=== PATIENT | female | born 1950 | race Caucasian/White ===

== ENCOUNTER 2020-12-10 17:53 | Emergency (ER) | payer OTHER ==
[~2020-12-10 17:53] MED LIST: BACLOFEN20 MG PO; CIPRO500 MG PO; DIAZEPAM 5MG TAB5 MG PO; DICLOFENAC SOD100 G1 PO; LIDOCAINE 5% P1 EACH TOP
[2020-12-10] MEDS ORDERED: CEPHALEXIN500 M1 PO (22:48)
[2020-12-10] MEDS ORDERED: K-DUR20 MEQ PO (22:48)
[2020-12-10] MEDS ORDERED: LASIX20 MG PO (22:48)
== END 2020-12-10 23:03 | disposition home or self-care (01) ==
LOC: FER 17:53
DX: L03.116 Cellulitis of left lower limb (principal); L03.115 Cellulitis of right lower limb; I87.2 Venous insufficiency (chronic) (peripheral); G35 Multiple sclerosis; R60.0 Localized edema
CPT/HCPCS: 36415; 83880; 99283

== ENCOUNTER 2021-12-27 13:56 | Day surgery (SDCO) | payer OTHER ==
[~2021-12-27] VITALS: Ht 167.6 cm; Wt 71.7 kg
[~2021-12-27 13:56] MED LIST changes: +CEPHALEXIN500 M1 PO; +K-DUR20 MEQ PO; +LASIX20 MG PO
[2021-12-27 15:40] LABS: BASOPHIL 0.6 % (0-2); EOSINOPHIL 3.3 % (0-7); HCT 35.7 % (37.0-47.0); HGB 11.8 g/dl (12.5-16.0); MCH 30.2 pg (25.0-31.0); MCHC 33.1 g/dL (32.0-36.0); MCV 91.3 fL (78.0-100.0); MONOCYTE 15.7 % (0-12); MPV 10.2 fL (6.0-9.5); NEUTROPHIL 52.2 % (41-80); NRBC 0; PLT 289 K/uL (150-400); RBC 3.91 M/uL (4.20-5.40); RDW 15.6 % (11.5-14.0); WBC 6.4 K/uL (4.0-10.5)
[2021-12-27 16:17] LABS: BUN/CREAT RATIO (CALC) 26.8 RATIO; CREATININE 0.56 mg/dL (0.51-0.95); POTASSIUM 3.6 mmol/L (3.5-5.1)
[2021-12-27 23:08] LABS: RETICULOCYTE COUNT 1.4 % (1.0-2.0)
[2021-12-28 06:32] LABS: HCT 32.8 % (37.0-47.0); HGB 10.8 g/dl (12.5-16.0); MCH 29.9 pg (25.0-31.0); MCHC 32.9 g/dL (32.0-36.0); MCV 90.9 fL (78.0-100.0); MPV 10.2 fL (6.0-9.5); RBC 3.61 M/uL (4.20-5.40); RDW 15.6 % (11.5-14.0); WBC 5.6 K/uL (4.0-10.5)
[2021-12-28 06:55] LABS: ALBUMIN 2.2 g/dL (3.4-5.0); BILIRUBIN - TOTAL 0.3 mg/dL (0.2-1.0); BUN/CREAT RATIO (CALC) 24.2 RATIO; CREATININE 0.62 mg/dL (0.51-0.95); POTASSIUM 3.7 mmol/L (3.5-5.1); TOTAL PROTEIN 5.2 g/dL (6.4-8.2)
[2021-12-30 05:50] LABS: BASOPHIL 0.5 % (0-2); HGB 10.7 g/dl (12.5-16.0); LYMPHOCYTE 38.4 % (15-48); MCH 29.6 pg (25.0-31.0); MCHC 32.4 g/dL (32.0-36.0); MCV 91.4 fL (78.0-100.0); MONOCYTE 16.3 % (0-12); MPV 10.3 fL (6.0-9.5); NEUTROPHIL 40.3 % (41-80); NRBC 0; PLT 208 K/uL (150-400); RBC 3.61 M/uL (4.20-5.40); RDW 15.5 % (11.5-14.0); WBC 4.3 K/uL (4.0-10.5)
[2021-12-30 06:11] LABS: BUN/CREAT RATIO (CALC) 14.9 RATIO; CREATININE 0.74 mg/dL (0.51-0.95); POTASSIUM 3.8 mmol/L (3.5-5.1)
[2022-01-01 07:19] LABS: BASOPHIL 0.6 % (0-2); EOSINOPHIL 4.5 % (0-7); HCT 36.3 % (37.0-47.0); HGB 11.5 g/dl (12.5-16.0); MCH 29.9 pg (25.0-31.0); MCHC 31.7 g/dL (32.0-36.0); MCV 94.5 fL (78.0-100.0); MPV 10.6 fL (6.0-9.5); NEUTROPHIL 42.7 % (41-80); NRBC 0; PLT 219 K/uL (150-400); RBC 3.84 M/uL (4.20-5.40); RDW 15.9 % (11.5-14.0); WBC 5.1 K/uL (4.0-10.5)
[2022-01-01 07:36] LABS: BUN/CREAT RATIO (CALC) 15.9 RATIO; CREATININE 0.69 mg/dL (0.51-0.95); POTASSIUM 4.1 mmol/L (3.5-5.1)
--- NOTE | 2022-01-01 11:09 | NUR ---
PT IS CURRENT WITH [facility]. ALEXIS [phone] FAX [phone]
[2022-01-02 06:40] LABS: BASOPHIL 0.8 % (0-2); EOSINOPHIL 6.1 % (0-7); HCT 35.2 % (37.0-47.0); HGB 11.1 g/dl (12.5-16.0); LYMPHOCYTE 33.7 % (15-48); MCH 29.5 pg (25.0-31.0); MCHC 31.5 g/dL (32.0-36.0); MCV 93.6 fL (78.0-100.0); MONOCYTE 16.2 % (0-12); MPV 10.4 fL (6.0-9.5); NRBC 0; PLT 234 K/uL (150-400); RBC 3.76 M/uL (4.20-5.40); RDW 15.8 % (11.5-14.0); WBC 5.1 K/uL (4.0-10.5)
[2022-01-02 06:58] LABS: BUN/CREAT RATIO (CALC) 18.2 RATIO; CREATININE 0.77 mg/dL (0.51-0.95)
[2022-01-03 07:10] LABS: HCT 33.9 % (37.0-47.0); HGB 10.9 g/dl (12.5-16.0); MCH 29.8 pg (25.0-31.0); MCHC 32.2 g/dL (32.0-36.0); MCV 92.6 fL (78.0-100.0); MPV 9.8 fL (6.0-9.5); RBC 3.66 M/uL (4.20-5.40); RDW 15.6 % (11.5-14.0); WBC 4.6 K/uL (4.0-10.5)
[2022-01-03 07:28] LABS: BUN/CREAT RATIO (CALC) 18.9 RATIO; CREATININE 0.53 mg/dL (0.51-0.95)
[2022-01-04 06:14] LABS: HCT 34.1 % (37.0-47.0); MCH 30.1 pg (25.0-31.0); MCHC 32.3 g/dL (32.0-36.0); MCV 93.2 fL (78.0-100.0); MPV 9.9 fL (6.0-9.5); RBC 3.66 M/uL (4.20-5.40); RDW 15.6 % (11.5-14.0); WBC 4.1 K/uL (4.0-10.5)
[2022-01-04 06:39] LABS: BUN/CREAT RATIO (CALC) 18.5 RATIO; CREATININE 0.54 mg/dL (0.51-0.95); POTASSIUM 3.7 mmol/L (3.5-5.1)
[2022-01-04] MEDS ORDERED: SILVASORB44.4 ML TOP (08:54)
--- NOTE | 2022-01-04 09:58 | NUR ---
PER DR. NEWSOME PT WILL D/C HOME ON 01/04/22 WITH .
--- NOTE | 2022-01-04 10:01 | NUR ---
PER DR. NEWSOME, PT NO LONGER WANTS TO GO TO [facility] AND WISHES TO RETURN HOME. ADVISED NURSE, DIAMOND, THAT PT IS CURRENT WITH [facility] .
--- NOTE | 2022-01-04 13:05 | NUR ---
SPOKE WITH COCO FROM [facility] AND INFORMED OF GOING HOME AND OF DRESSING BEING CHANGED TODAY
--- NOTE | 2022-01-05 11:08 | NUR ---
PATIENT'S SON HERE YESTERDAY AND WAS INFORMED OF PATIENT'S DISCHARGE, ASKED IF HE WAS GOING TO BE TAKING HER HOME, HE STATED NO BUT HIS SISTER LIVES CLOSE TO CALL HER. CALL TO SISTER ONCE PATIENT READY TO BE DISCHARGED AND SHE INFORMED ME IT WOULD BE LATER TODAY SHE WOULD PICK HER UP. RETURNED THIS AM AND PATIENT IS STILL HERE AND STATING NEITHER CHILD WILL ANSWER HER CALLS, THAT IT JUST GOES TO [facility]. ATTEMPTED TO CALL THEM AND IT WENT TO [facility] AND MESSAGE LEFT THAT PATIENT IS DISCHARGED AND NEEDS A RIDE HOME.
--- NOTE | 2022-01-05 13:46 | NUR ---
PER PATIENT, HER SON TOLD HER THE ELECTRIC IS OFF AT HER HOUSE DUE TO NON PAYMENT, SHE IS TRYING TO PAY HER BILL AT THIS TIME
== END 2022-01-05 14:45 | disposition home health service (06) ==
LOC: FER 13:56 → FMS 17:21
PROVIDERS: Nurse Practitioner; Nurse Practitioner Acute Care; Nurse Practitioner Family; ADMIT Internal Medicine
DX: L03.116 Cellulitis of left lower limb (principal); L03.115 Cellulitis of right lower limb; R53.1 Weakness; R60.0 Localized edema; G35 Multiple sclerosis; S80.822A Blister (nonthermal), left lower leg, initial encounter; S80.821A Blister (nonthermal), right lower leg, initial encounter; D64.9 Anemia, unspecified; Z20.822 Contact with and (suspected) exposure to COVID-19; Z79.899 Other long term (current) drug therapy; X58.XXXA Exposure to other specified factors, initial encounter
CPT/HCPCS: 36415; 80048; 80053; 80202; 82728; 83540; 83605; 83880; 84145; 85025; 93005; 94010; 96365; 96375; 97110; 97162; 97166; 97530; 97530-GP; 97535; G0378; J1650; J1940; J3370; J7050; U0002

== ENCOUNTER 2022-01-13 15:57 | Emergency (ER) | payer OTHER ==
[~2022-01-13 15:57] MED LIST changes: +SILVASORB44.4 ML TOP
[2022-01-13 16:58] LABS: HGB 12.1 g/dl (12.5-16.0); MCHC 31.8 g/dL (32.0-36.0); MCV 94.3 fL (78.0-100.0); MONOCYTE 14.1 % (0-12); MPV 10.4 fL (6.0-9.5); NEUTROPHIL 49.7 % (41-80); NRBC 0; PLT 415 K/uL (150-400); RBC 4.03 M/uL (4.20-5.40); RDW 15.9 % (11.5-14.0)
[2022-01-13 17:20] LABS: ALBUMIN 3.3 g/dL (3.4-5.0); BILIRUBIN - TOTAL 0.3 mg/dL (0.2-1.0); BUN/CREAT RATIO (CALC) 18.3 RATIO; CREATININE 0.71 mg/dL (0.51-0.95); GLOBULIN (CALCULATION) 3.3 g/dL; POTASSIUM 3.9 mmol/L (3.5-5.1); TOTAL PROTEIN 6.6 g/dL (6.4-8.2)
[2022-01-13] MEDS ORDERED: LASIX20 MG PO (18:52)
[2022-01-13] MEDS ORDERED: K-TAB ER20 MEQ PO (18:52)
== END 2022-01-13 22:17 | disposition home or self-care (01) ==
LOC: FER 15:57
PROVIDERS: Emergency Medicine
DX: I87.8 Other specified disorders of veins (principal); S80.921A Unspecified superficial injury of right lower leg, initial encounter
CPT/HCPCS: 36415; 71045; 80053; 83880; 84145; 85025; J1940